=== PATIENT | female | born 1995 | race Caucasian/White ===

== ENCOUNTER 2019-06-26 21:13 | Emergency (ER) | payer SELFPAY ==
[2019-06-26 21:31] VITALS: BP 116/68
--- NOTE | 2019-06-26 21:44 | Emergency Department Report ---
Blank Doc - Documentation Documentation: 23-year-old female that presents with left eye pain and foreign body sensation. This initial assessment/diagnostic orders/clinical plan/treatment(s) is/are subject to change based on patient's health status, clinical progression and re- assessment by fellow clinical providers in the ED. Further treatment and workup at subsequent clinical providers discretion. Patient/guardians urged not to elope from the ED as their condition may be serious if not clinically assessed and managed. Initial orders include: 1- Patient sent to [facility] for further evaluation and treatment 2- trujillo lamp 3- visual testing
== END 2019-06-27 00:20 | disposition left against medical advice (07) ==
LOC: ED 21:13
DX: H57.11 Ocular pain, right eye (principal); Z53.21 Procedure and treatment not carried out due to patient leaving prior to being seen by health care provider